=== PATIENT | female | born 1970 ===

== ENCOUNTER → 2021-10-05 | Outpatient (CLI) | payer OTHER ==
[2021-10-06 15:11] LABS: HPV 16 Negative (Negative); HPV 18 Negative (Negative); HPV OTHER HR TYPES Negative (Negative)
== END | disposition home or self-care (01) ==
LOC: LAB SHORT 13:29 → LAB 13:29
PROVIDERS: Obstetrics & Gynecology
DX: Z01.419 Encounter for gynecological examination (general) (routine) without abnormal findings (principal)
CPT/HCPCS: 87624; G0123